=== PATIENT | male | born 1940 | race Caucasian/White ===

== ENCOUNTER → 2017-04-16 | Outpatient (CLI) | payer OTHER | END | disposition home or self-care (01) | LOC: CFH 07:47 | PROVIDERS: ATTEND Family Medicine | DX: M51.36 Other intervertebral disc degeneration, lumbar region (principal); N28.1 Cyst of kidney, acquired; M51.26 Other intervertebral disc displacement, lumbar region | CPT/HCPCS: 72148; 76700 ==